=== PATIENT | male | born 1980 | race Two or more races ===

== ENCOUNTER 2021-05-15 19:05 | Observation (INO) | payer OTHER, SELFPAY ==
[2021-05-15 19:06] VITALS: BP 162/97; PULSE 78; RESP 18; TEMP 36.9; O2SAT 100; BMI 30.7
--- NOTE | 2021-05-15 19:19 | HMH.EDGENADL ---
ED Disposition Clinical Impression: Knee pain Qualifiers: Chronicity: unspecified Laterality: right Qualified Code(s): M25.561 - Pain in right knee Disposition: Still a Patient Condition on Discharge: Good Referrals: Provider,Referral, [Primary Care Provider] - - Critical Care Critical Care Time: No Attestation: On 05/15/21, the high probability of a clinically significant, sudden or life threatening deterioration of the following system(s) required my full and direct attention, intervention and personal management. The time I documented below is in addition to time spent performing reported procedures but includes the following listed in this critical care notation. Medical Decision Making - Medical Records Medical records reviewed: Yes: I reviewed the patient's medical records. - Isidro Inquiry Pt receiving controlled substance: No Vital Signs: 05/15/21 19:06 Temperature 98.5 F Temperature Source Oral Pulse Rate [Right] 78 Respiratory Rate 18 Blood Pressure [Right Arm] 162/97 H Blood Pressure Mean [Right Arm] 118 Blood Pressure Source [Right Arm] Automatic Cuff 02 Sat by Pulse Oximetry 100 Oxygen Delivery Method Room Air - Lab Data Lab Results 05/15/21 20:20: WBC 11.5 H, RBC 5.36, Hgb 15.4, Hct 44.9, MCV 83.8, MCH 28.7, MCHC 34.2, RDW 13.9, Plt Count 168, MPV 8.5, Neut % (Auto) 80.3 H, Lymph % (Auto) 12.8, [place] % (Auto) 4.1, Eos % (Auto) 1.6, Baso % (Auto) 1.1, Neut # (Auto) 9.3 H, Lymph # (Auto) 1.5, [place] # (Auto) 0.5, Eos # (Auto) 0.2, Baso # (Auto) 0.1 05/15/21 20:20: Sodium 140, Potassium 4.0, Chloride 102, Carbon Dioxide 25, Anion Gap 17.0 H, BUN 19, Creatinine 0.70, Estimated Creat Clear 198, Estimated GFR 125, Est GFR ( Amer) 151, Glucose 106 H, Calcium 9.3, C-Reactive Protein 23.5 H Result diagrams: 05/15/21 20:20 05/15/21 20:20 Orders (Tests/Meds): ED MEDICATIONS Generic Name Dose Route Start Last Admin Trade Name Freq PRN Reason Stop Dose Admin Sodium Chloride 1,000 mls @ 999 mls/hr 05/15/21 20:30 05/15/21 20:30 Sod Chlor 0.9% 1000ml Bag IV 05/15/21 21:30 999 mls/hr .Q1H1M NIDA Administration Oxycodone HCl 5 mg 05/15/21 19:24 Oxycodone 5mg Immediate Release Tablet PO 06/14/21 19:23 Q6HP PRN Severe Pain Discontinued Medications Generic Name Dose Route Start Last Admin Trade Name [place] PRN Reason Stop Dose Admin Acetaminophen 500 mg 05/15/21 19:24 Acetaminophen 500mg Tab PO 05/15/21 19:25 ONCE ONE Hydromorphone HCl 0.5 mg 05/15/21 20:46 05/15/21 20:47 Hydromorphone 2mg/Ml Syringe IV 05/15/21 20:47 0.5 mg ONCE ONE Administration Hydromorphone HCl 1 mg 05/15/21 20:49 05/15/21 20:50 Hydromorphone 2mg/Ml Syringe IV 05/15/21 20:50 1 mg ONCE ONE Administration Morphine Sulfate 4 mg 05/15/21 20:25 05/15/21 20:25 Morphine 4mg/Ml Syringe IV 05/15/21 20:26 4 mg ONCE ONE Administration Morphine Sulfate 4 mg 05/15/21 20:46 05/15/21 20:35 Morphine 4mg/Ml Syringe IV 05/15/21 20:47 4 mg ONCE ONE Administration Ondansetron HCl 4 mg 05/15/21 20:25 05/15/21 20:25 Ondansetron 4mg/2ml Vial IV 05/15/21 20:26 4 mg ONCE ONE Administration ORDERS Category Date Time Status CT knee RT wo con Stat Cat Scan 05/15/21 20:07 Ordered Complete Blood Count Auto Diff Stat Lab 05/15/21 20:20 Results Erythrocyte Sedimentation Rate Stat Lab 05/15/21 20:20 Results Procalcitonin Stat Lab 05/15/21 20:07 Ordered Prothrombin Time INR Stat Lab 05/15/21 19:23 Ordered Medical Decision Narrative: Patient was stable on arrival nontoxic appearance. Differential includes infection, cellulitis, septic joint, other. Given patient's history exam plan obtain basic labs, CRP, ESR, x-rays of the right knee and reassess. We obtained a joint aspiration of the right knee however once I was in the joint space unable to obtain any fluid. At this point I believe the patient might have a preseptal bursitis
--- NOTE | 2021-05-15 19:23 | XR_ITS ---
PROCEDURE INFORMATION: Exam: XR Right Knee Exam date and time: 05/15/2021 7:23 PM Age: 40 years old Clinical indication: Patient HX: Right knee pain since today, no known injury, limited movement TECHNIQUE: Imaging protocol: XR Right knee. Views: 3 views. COMPARISON: No relevant prior studies available. FINDINGS: Bones/joints: Small marginal osteophytes of the patellofemoral joint and medial compartment compatible with mild arthrosis. Significant prepatellar soft tissue swelling which may represent prepatellar bursitis in the appropriate clinical setting. Soft tissues: See Bones/joints finding. IMPRESSION: 1. Small marginal osteophytes of the patellofemoral joint and medial compartment compatible with mild arthrosis. 2. Significant prepatellar soft tissue swelling which may represent prepatellar bursitis in the appropriate clinical setting.
--- NOTE | 2021-05-15 20:07 | CT_ITS ---
PROCEDURE INFORMATION: Exam: CT Right Lower Extremity Without Contrast, Knee Exam date and time: 05/15/2021 8:07 PM Age: 40 years old Clinical indication: Patient HX: Right knee pain, no known injury, swelling; Additional info: Septic joint TECHNIQUE: Imaging protocol: CT of the Right lower extremity without contrast was performed. Exam focused on the knee. 3D rendering (Not supervised by radiologist): MIP and/or 3D reconstructed images were created by the technologist. Radiation optimization: All CT scans at this facility use at least one of these dose optimization techniques: automated exposure control; mA and/or kV adjustment per patient size (includes targeted exams where dose is matched to clinical indication); or iterative reconstruction. COMPARISON: CR XR KNEE RT 3V 05/15/2021 7:35 PM FINDINGS: Bones/joints: Low volume knee joint effusion with hyperattenuation of the synovium (image 39 of series 3) could represent infectious versus inflammatory synovitis. Soft tissues: Moderate prepatellar soft tissue swelling could represent prepatellar bursitis versus cellulitis. IMPRESSION: 1. Moderate prepatellar soft tissue swelling could represent prepatellar bursitis versus cellulitis. 2. Low volume knee joint effusion with hyperattenuation of the synovium (image 39 of series 3) could represent infectious versus inflammatory synovitis.
[2021-05-15 20:40] LABS: Basophils # 0.1 K/mm3 (0-0.2); Basophils % 1.1 % (0.1-2.0); Eosinophils # 0.2 K/mm3 (0.0-0.4); Eosinophils % 1.6 % (0.1-12.0); Hematocrit 44.9 % (42.0-52.0); Hemoglobin 15.4 g/dL (14.1-18.0); Lymphocytes # 1.5 K/mm3 (0.7-4.5); Lymphocytes % 12.8 % (10-50); Mean Corpuscular HGB Conc 34.2 g/dL (31.8-35.4); Mean Corpuscular Hemoglobin 28.7 pg (27.0-31.2); Mean Corpuscular Volume 83.8 fl (80-94); Mean Platelet Volume 8.5 fl (7.4-10.4); Monocytes # 0.5 K/mm3 (0.1-1.0); Monocytes % 4.1 % (1.7-9.3); Neutrophils # 9.3 K/mm3 (1.8-7.8); Neutrophils % 80.3 % (37.0-80.0); Platelet Count 168 K/mm3 (142-424); Red Blood Count 5.36 M/mm3 (4.60-6.20); Red Cell Distribution Width 13.9 % (11.5-17.5); White Blood Count 11.5 K/mm3 (4.8-10.8)
[2021-05-15 20:48] LABS: Blood Urea Nitrogen 19 mg/dl (9-20); Calcium 9.3 mg/dl (8.4-10.2); Carbon Dioxide 25 mmol/L (22.0-30.0); Chloride 102 mmol/L (98-107); Creatinine Clearance Estimated 198 mL/min (50-200); Estimated Glomerular Filt Rate 125 ml/min (>60); GFR (African American) 151 ML/MIN (>60); Glucose 106 mg/dl (74-100); Sodium 140 mmol/L (136-145)
[2021-05-15 20:53] LABS: C-Reactive Protein 23.5 mg/L (0-4)
[2021-05-15 21:05] LABS: Erythrocyte Sedimentation Rate 10 mm/hr (0-15)
[2021-05-15 21:16] LABS: Coronavirus 19, PCR Not Detected (NotDetected); Influenza A, PCR Not Detected (NotDetected); Influenza B, PCR Not Detected (NotDetected)
--- NOTE | 2021-05-15 22:31 | PC.NURSE ---
report called to jenelle.
[2021-05-15 22:32] VITALS: BP 141/78; PULSE 71; RESP 18; TEMP 36.9; O2SAT 100
[2021-05-15 22:43] LABS: Lactic Acid 1.6 mmol/L (0.7-2.1)
--- NOTE | 2021-05-15 22:54 | PC.NURSE ---
patient up to floor via wheelchair.
[2021-05-15 23:57] VITALS: BP 125/69; PULSE 79; RESP 20; TEMP 36.8; O2SAT 99
[2021-05-15 23:58] VITALS: BMI 29.2
--- NOTE | 2021-05-16 03:08 | PC.NURSE ---
shift summary pt is alert and oriented X4. lung sounds are clear with sats maintained 95% or above on room air. pts right knee is swollen but is still able to ambulate, and has full ROM. pt voids per urinal and bathroom urine is clear and yellow in color. pt denies any pain, nausea, vomiting, or diarrhea. no acute changes will continue to monitor.
[2021-05-16 04:00] VITALS: BP 128/93; PULSE 92; RESP 16; TEMP 36.9; O2SAT 99
[2021-05-16 07:24] LABS: Anion Gap 11.1 mEq/L (5-15); Blood Urea Nitrogen 16 mg/dl (9-20); Carbon Dioxide 23 mmol/L (22.0-30.0); Chloride 106 mmol/L (98-107); Creatinine Clearance Estimated 189 mL/min (50-200); Estimated Glomerular Filt Rate 125 ml/min (>60); GFR (African American) 151 ML/MIN (>60); Glucose 111 mg/dl (74-100); Potassium 4.1 mmoL/L (3.5-5.1); Sodium 136 mmol/L (136-145)
[2021-05-16 07:34] LABS: Calcium 8.3 mg/dl (8.4-10.2)
[2021-05-16 07:55] VITALS: BP 164/91; PULSE 91; RESP 17; TEMP 38.1; O2SAT 97
[2021-05-16 08:00] VITALS: PULSE 91; RESP 17; O2SAT 97
--- NOTE | 2021-05-16 08:32 | HMH.PHAVTE ---
[facility] Pharmacy VTE Monitoring - Patient Demographics Admission date: 05/16/21 Report Date: 05/16/21 Time: 08:32 Allergies/Adverse Reactions: Patient Allergies No Known Allergies Allergy (Verified 06/02/19 10:28) Height: 1.8 m Weight: 95.254 kg Patient Problems: Current Active Problems Knee pain (Acute) - VTE Risk Labs: VTE Related Lab Results Hgb 15.4 g/dL (14.1-18.0) 05/15/21 20:20 Hct 44.9 % (42.0-52.0) 05/15/21 20:20 Plt Count 168 K/mm3 (142-424) 05/15/21 20:20 BUN 16 mg/dl (9-20) 05/16/21 07:00 Creatinine 0.70 mg/dl (0.66-1.25) 05/16/21 07:00 Estimated Creat Clear 189 mL/min (50-200) 05/16/21 07:00 Was VTE Risk Assessment Performed: Yes VTE Risk Level: Very Low Risk Clinical Trial Participant: No - Prophylaxis VTE Prophylaxis Ordered?: Yes Types of VTE Prophylaxis: TEDS Knee High
--- NOTE | 2021-05-16 08:53 | HMH.PHACONS ---
- Pharmacy Consult Date: 05/16/21 Time: 08:53 Referring provider: DR. REAGAN Reason for Consult:: VANCOMYCIN DOSING Allergies and ADEs:: Allergies Allergy/AdvReac Type Severity Reaction Status Date / Time No Known Allergies Allergy Verified 06/02/19 10:28 Home Medications:: Home Medications Medication Instructions Recorded Confirmed Type No Known Home Medications 05/15/21 05/15/21 History Height: 1.8 m Weight: 95.254 kg Laboratory Results:: Laboratory Results - last 24 hr 05/15/21 20:15: SARS-CoV-2 (PCR) Not detected, Influenza A Untype (PCR) Not detected, Influenza Type B (PCR) Not detected 05/15/21 20:20: WBC 11.5 H, RBC 5.36, Hgb 15.4, Hct 44.9, MCV 83.8, MCH 28.7, MCHC 34.2, RDW 13.9, Plt Count 168, MPV 8.5, Neut % (Auto) 80.3 H, Lymph % (Auto) 12.8, [place] % (Auto) 4.1, Eos % (Auto) 1.6, Baso % (Auto) 1.1, Neut # (Auto) 9.3 H, Lymph # (Auto) 1.5, [place] # (Auto) 0.5, Eos # (Auto) 0.2, Baso # (Auto) 0.1, ESR 10 05/15/21 20:20: Sodium 140, Potassium 4.0, Chloride 102, Carbon Dioxide 25, Anion Gap 17.0 H, BUN 19, Creatinine 0.70, Estimated Creat Clear 198, Estimated GFR 125, Est GFR ( Amer) 151, Glucose 106 H, Calcium 9.3, C-Reactive Protein 23.5 H 05/15/21 20:20: Procalcitonin 0.050 05/15/21 20:20: Lactate 1.6 05/16/21 07:00: Sodium 136, Potassium 4.1, Chloride 106, Carbon Dioxide 23, Anion Gap 11.1, BUN 16, Creatinine 0.70, Estimated Creat Clear 189, Estimated GFR 125, Est GFR ( Amer) 151, Glucose 111 H, Calcium 8.3 L D Medical History: Denies:: Cancer, Diabetes Mellitus Type 1, Diabetes Mellitus Type 2, MRSA Assessment and Plan - Assessment and plan all Dx Assessment and Plan for all problems:: Subjective and Objective Data: This is a 40 year old male patient with septic knee. Measured serum creatinine (SCr) is 0.7 mg/dL. Given a height of 180 cm and a weight of 95.2 kg, estimated creatinine clearance is 188.9 mL/min (using the CrCl TBW body weight). The following targets were selected for dosing: - Desired AUC = 500 mcg*h/mL - Desired Cmax = 35 mcg/mL - Desired Cmin = 12.5 mcg/mL - Vd coefficient = 0.65 L/kg - Ke equation = CrCl*0.30094+0.0044 Calculations: Based on above, the following are calculated parameters for AUC-based vancomycin dosing in this patient: - Calculated Vd = 61.88L - Calculated Ke = 0.161 inverse hours - Calculated half-life = 4.3 hours Prescribed Dosing: Empiric dose will be vancomycin IV 1750mg [id number] Which is predicted to achieve the following parameters: - Estimated AUC = 526.4 mcg*h/mL - Estimated Cmax = 39 mcg/mL - Estimated Cmin = 14.8 mcg/mL -ROSI ELLIOTT PHARMD
[2021-05-16 09:13] LABS: Basophils # 0.1 K/mm3 (0-0.2); Basophils % 0.9 % (0.1-2.0); Eosinophils # 0.2 K/mm3 (0.0-0.4); Eosinophils % 1.5 % (0.1-12.0); Hematocrit 38.1 % (42.0-52.0); Lymphocytes # 1.4 K/mm3 (0.7-4.5); Lymphocytes % 11.4 % (10-50); Mean Corpuscular Hemoglobin 29.2 pg (27.0-31.2); Mean Corpuscular Volume 83.4 fl (80-94); Mean Platelet Volume 9.2 fl (7.4-10.4); Monocytes # 0.7 K/mm3 (0.1-1.0); Monocytes % 5.3 % (1.7-9.3); Neutrophils % 80.9 % (37.0-80.0); Platelet Count 151 K/mm3 (142-424); Red Blood Count 4.57 M/mm3 (4.60-6.20); Red Cell Distribution Width 13.8 % (11.5-17.5); White Blood Count 12.3 K/mm3 (4.8-10.8)
--- NOTE | 2021-05-16 09:19 | HMH.HP ---
*Admission Date: 05/16/21 *Chief complaint: knee pain *History of present illness: this pt presented to the ed with progressive pain and swelling rt knee with reddness and dec rom - no other swollen jts - pt was seen in the ed with abn xrays and ct showing possible cellulitis - no fluid obtained with knee aspiration -luiza is a 40-year-old otherwise healthy male presents emergency department for right knee pain. 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 Yesterday he started having some pain in his right knee that progressively got worse today. The knee is swollen and hurts when he moves it. He denies any fevers. States that the left knee also was hurting but not nearly as bad. No history of gout or immunocompromise state. No history of joint infections in the past. He denies any fevers, chills. No skin lesions. e obtained a joint aspiration of the right knee however once I was in the joint space unable to obtain any fluid. At this point I believe the patient might have a preseptal bursitis more than a septic joint given that there was no fluid in the joint space. pt admitted for ivf and abx at this time [facility] History I have reviewed the patient's past medical history: Yes Medical History: Denies:: Cancer, Diabetes Mellitus Type 1, Diabetes Mellitus Type 2, MRSA *Have you ever received a pneumonia vaccine?: No *Have you received a flu vaccine this season?: Yes Amputation: No - *Social History Last grade of school completed: None Smoking Status: Current every day smoker Alcohol Intake: current Alcohol Intake Frequency:: holidays/special occasions only *Occupational Status:: employed *Travel in the last 8 weeks: None Family Hx:: No significant family history Review of Systems - Review of Systems Review of systems:: pertinent systems reviewed and negative unless documented below - Constitutional Denies fever(s) - Eyes Denies change in vision - ENT Denies sore throat - *Cardiovascular Denies chest pain - *Respiratory Denies cough - *Gastrointestinal Denies abdominal pain - *Genitourinary Denies penile discharge - *Musculoskeletal Reports joint pain, Reports joint swelling, Reports limited joint movement - Integumentary/Breasts Denies rash - *Neurologic Denies localized weakness, Denies headache(s), Denies seizure-like activity - Psychiatric Denies anxiety Meds Home Medications Medication Instructions Recorded Confirmed Type No Known Home Medications 05/15/21 05/15/21 History Allergies Allergy/AdvReac Type Severity Reaction Status Date / Time No Known Allergies Allergy Verified 06/02/19 10:28 Exam Vital signs and Labs for Last 24 Hours: Temp Pulse Resp BP Pulse Ox 100.6 F H 91 H 17 164/91 H 97 05/16/21 07:55 05/16/21 07:55 05/16/21 07:55 05/16/21 07:55 05/16/21 07:55 Laboratory Results - last 24 hr 05/15/21 20:15: SARS-CoV-2 (PCR) Not detected, Influenza A Untype (PCR) Not detected, Influenza Type B (PCR) Not detected 05/15/21 20:20: WBC 11.5 H, RBC 5.36, Hgb 15.4, Hct 44.9, MCV 83.8, MCH 28.7, MCHC 34.2, RDW 13.9, Plt Count 168, MPV 8.5, Neut % (Auto) 80.3 H, Lymph % (Auto) 12.8, [place] % (Auto) 4.1, Eos % (Auto) 1.6, Baso % (Auto) 1.1, Neut # (Auto) 9.3 H, Lymph # (Auto) 1.5, [place] # (Auto) 0.5, Eos # (Auto) 0.2, Baso # (Auto) 0.1, ESR 10 05/15/21 20:20: Sodium 140, Potassium 4.0, Chloride 102, Carbon Dioxide 25, Anion Gap 17.0 H, BUN 19, Creatinine 0.70, Estimated Creat Clear 198, Estimated GFR 125, Est GFR ( Amer) 151, Glucose 106 H, Calcium 9.3, C-Reactive Protein 23.5 H 05/15/21 20:20: Procalcitonin 0.050 05/15/21 20:20: Lactate 1.6 05/16/21 07:00: Sodium 136, Potassium 4.1, Chloride 106, Carbon Dioxide 23, Anion Gap 11.1, BUN 16, Creatinine 0.70, Estimated Creat Clear 189, Estimated GFR 125, Est GFR ( Amer) 151, Glucose 111 H, Calcium 8.3 L D 05/16/21 08:48: WBC 12.3 H, RBC 4.57 L, Hct 38.1 L, MCV 83.4
[2021-05-16 09:49] LABS: Hemoglobin 13.3 g/dL (14.1-18.0)
--- NOTE | 2021-05-16 15:02 | HMH.ORTHOCON ---
*Admission Date: 05/16/21 *Reason for consult:: Prepatellar bursitis, right knee *History of present illness: Patient is a 40-year-old male admitted to the hospital overnight with complaints of pain and swelling of his right knee. He is giving a one day history of pain and swelling over the anterior aspect of his right knee. He also reports some erythema over this area. No history of any specific injury. 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 He says he had similar but milder problem on the left side which has improved on its own. He says he did not have any fevers, chills or rigors prior to he was admitted. However, he had temperature of around 100 this morning. He says he is feeling well within himself and is eating and drinking well. No history of any previous similar problems with the right knee. No history of any previous knee surgery or significant injury. Couple of attempts were made in the ER to aspirate the knee which were only dry taps. CT scan showed prepatellar swelling with a small amount of knee effusion. Following admission last night, he was started on IV antibiotics and narcotic pain medication. He reports improvement in his pain today. He still reports pain with knee movements. He is otherwise healthy and has no significant medical problems. No history of gout or immunocompromise state. No history of any distal tingling or numbness. [facility] History I have reviewed the patient's past medical history: Yes Medical History: Denies:: Cancer, Diabetes Mellitus Type 1, Diabetes Mellitus Type 2, MRSA *Have you ever received a pneumonia vaccine?: No *Have you received a flu vaccine this season?: Yes Amputation: No - *Social History Last grade of school completed: None Smoking Status: Never smoker Alcohol Intake: current Alcohol Intake Frequency:: holidays/special occasions only *Occupational Status:: employed *Travel in the last 8 weeks: None Family Hx:: Non-contributory Review of Systems - Review of Systems Review of systems:: pertinent systems reviewed and negative unless documented below - Constitutional Denies chills, Denies excessive sweating, Denies fever(s), Denies malaise - Eyes Denies change in vision - ENT Denies abnormal hearing - *Cardiovascular Denies chest pain, Denies shortness of breath - *Respiratory Denies chest congestion, Denies cough - *Gastrointestinal Denies abdominal pain, Denies change in bowel habits - *Genitourinary Denies difficulty urinating - *Musculoskeletal Reports abnormal walking, Reports joint pain, Reports joint swelling, Reports limited joint movement - *Neurologic Denies localized weakness, Denies headache(s), Denies seizure-like activity - Endocrine Denies cold intolerance, Denies heat intolerance - Hematologic/Lymphatic Denies easy bleeding, Denies easy bruising Meds Home Medications Medication Instructions Recorded Confirmed Type No Known Home Medications 05/15/21 05/15/21 History Allergies Allergy/AdvReac Type Severity Reaction Status Date / Time No Known Allergies Allergy Verified 06/02/19 10:28 Exam Vital signs and Labs for Last 24 Hours: Temp Pulse Resp BP Pulse Ox 100.6 F H 91 H 17 164/91 H 97 05/16/21 07:55 05/16/21 08:00 05/16/21 08:00 05/16/21 07:55 05/16/21 08:00 Laboratory Results - last 24 hr 05/15/21 20:15: SARS-CoV-2 (PCR) Not detected, Influenza A Untype (PCR) Not detected, Influenza Type B (PCR) Not detected 05/15/21 20:20: WBC 11.5 H, RBC 5.36, Hgb 15.4, Hct 44.9, MCV 83.8, MCH 28.7, MCHC 34.2, RDW 13.9, Plt Count 168, MPV 8.5, Neut % (Auto) 80.3 H, Lymph % (Auto) 12.8, [place] % (Auto) 4.1, Eos % (Auto) 1.6, Baso % (Auto) 1.1, Neut # (Auto) 9.3 H, Lymph # (Auto) 1.5, [place] # (Auto) 0.5, Eos # (Auto) 0.2, Baso # (Auto) 0.1, ESR 10 05/15/21 20:20: Sodium 140, Potassium 4.0, Chloride 102, Carbon Dioxide 25, Anion Gap 17.
[2021-05-16 16:00] VITALS: BP 134/87; PULSE 83; RESP 16; TEMP 36.9; O2SAT 100
--- NOTE | 2021-05-16 16:21 | PC.NURSE ---
Pt has been pleasant and cooperative this shift. A&O X4. Pt has had several complaints of pain and has been medicated with Dilaudid per MAR with favorable results. Pt is on room air with sats. >90%. Lungs CTA. RT knee noted to be edematous and warm to the touch. Appetite is good and pt eats the majority of all meals. Pt ambulates independently to/from the bathroom and throughout the room. Urine is clear and yellow. No BM this shift. Temperature this AM noted to be 100.6. After Tylenol administration temp. has remained WNL. 18 G peripheral IV in the RT AC is patent and infusing NS @ 100 ML/HR. VSS. Call light within reach. Will continue to monitor.
[2021-05-16 20:00] VITALS: BP 139/70; PULSE 77; RESP 17; TEMP 36.8; O2SAT 99
[2021-05-17 04:00] VITALS: BP 109/55; PULSE 74; RESP 18; TEMP 37.3; O2SAT 100
--- NOTE | 2021-05-17 04:30 | PC.NURSE ---
shift summary pt is alert and oriented X4. lung sounds are clear with sats maintained 95% or above on room air. pts right knee is swollen but is still able to ambulate, and has full ROM. pt voids per urinal and bathroom urine is clear and yellow in color.pt complained of pain one time that was relieved with pain meds. pt denies nausea, vomiting, or diarrhea. no acute changes will continue to monitor.
[2021-05-17 06:08] VITALS: BMI 29.4
[2021-05-17 07:35] LABS: Basophils % 0.3 % (0.1-2.0); Eosinophils # 0.1 K/mm3 (0.0-0.4); Hematocrit 38.6 % (42.0-52.0); Hemoglobin 13.2 g/dL (14.1-18.0); Lymphocytes # 1.4 K/mm3 (0.7-4.5); Lymphocytes % 11.7 % (10-50); Mean Corpuscular HGB Conc 34.1 g/dL (31.8-35.4); Mean Corpuscular Hemoglobin 29.1 pg (27.0-31.2); Mean Corpuscular Volume 85.4 fl (80-94); Mean Platelet Volume 9.1 fl (7.4-10.4); Monocytes # 0.6 K/mm3 (0.1-1.0); Monocytes % 4.8 % (1.7-9.3); Neutrophils # 9.4 K/mm3 (1.8-7.8); Neutrophils % 82.1 % (37.0-80.0); Platelet Count 147 K/mm3 (142-424); Red Blood Count 4.52 M/mm3 (4.60-6.20); Red Cell Distribution Width 13.8 % (11.5-17.5); White Blood Count 11.4 K/mm3 (4.8-10.8)
[2021-05-17 07:43] LABS: C-Reactive Protein 229.3 mg/L (0-4)
[2021-05-17 08:00] VITALS: BP 140/80; PULSE 87; RESP 16; TEMP 37.9; O2SAT 98
[2021-05-17 08:01] LABS: Erythrocyte Sedimentation Rate 69 mm/hr (0-15)
--- NOTE | 2021-05-17 09:27 | HMH.ACPN2 ---
Internal Medicine - PN: Subj *Date: 05/18/21 *Time: 07:27 Interval history: pt doing better this am -knee appears better Exam Vital signs and Labs for Last 24 Hours: Temp Pulse Resp BP Pulse Ox 100.2 F H 87 16 140/80 98 05/17/21 08:00 05/17/21 08:00 05/17/21 08:00 05/17/21 08:00 05/17/21 08:00 Laboratory Results - last 24 hr 05/16/21 08:48: Hgb 13.3 L D 05/17/21 07:09: WBC 11.4 H, RBC 4.52 L, Hgb 13.2 L, Hct 38.6 L, MCV 85.4, MCH 29.1, MCHC 34.1, RDW 13.8, Plt Count 147, MPV 9.1, Neut % (Auto) 82.1 H, Lymph % (Auto) 11.7, [place] % (Auto) 4.8, Eos % (Auto) 1.0, Baso % (Auto) 0.3, Neut # (Auto) 9.4 H, Lymph # (Auto) 1.4, [place] # (Auto) 0.6, Eos # (Auto) 0.1, Baso # (Auto) 0.0, ESR 69 H 05/17/21 07:09: C-Reactive Protein 229.3 H 05/17/21 07:09: Vancomycin Peak 10.0 L I & O for Last 24 hours: Intake & Output 05/14/21 05/15/21 05/16/21 05/17/21 11:59 11:59 11:59 11:59 Intake Total 1250 / 1250 2220 / 2220 Balance 1250 / 1250 2220 / 2220 Weight 210 lb 210 lb - Constitutional no acute distress - *Routine HEENT Exam Head: Present: normocephalic Eye: Present: EOMI, PERRL ENT: Present: mucous membranes dry - *Routine Neck Exam Present: supple - *Routine Respiratory Exam Present: CTA bilaterally - *Routine Cardiovascular Exam Present: RRR - *Routine Abdominal Exam Present: soft - *Routine Extremities Exam Comments: rt knee better with less changes - *Routine Skin Exam Present: warm - *Routine Neurological Exam Present: alert, CN II-XII intact - Routine Psychiatric Exam Present: normal affect Assessment and Plan (1) Cellulitis Status: Acute Qualifiers: Site of cellulitis: extremity Site of cellulitis of extremity: lower extremity Laterality: right Qualified Code(s): L03.115 - Cellulitis of right lower limb Category: Medical Code(s): L03.90 - Cellulitis, unspecified (2) Prepatellar bursitis, right knee Status: Acute Category: Medical Code(s): M70.41 - Prepatellar bursitis, right knee (3) Overweight (BMI 25.0-29.9) Status: Acute Category: Medical Code(s): E66.3 - Overweight
--- NOTE | 2021-05-17 09:38 | P.PN_ITS ---
Subjective Date: 05/17/21 Time: 09:15 Principal diagnosis: Prepatellar bursitis, right knee Interval history: Patient says he is feeling better and his knee feels 'a lot better' than yesterday. He says he is mobilizing well and only reports slight anterior knee pain when he takes first 1 or 2 steps. No pain at rest. He also reports good range of knee movements today. He had a temperature spike this morning but says he is feeling well within himself without any chills or rigors. He says he is feeling well within himself. He is eating and drinking well. No history of any nausea or vomiting. No history of any distal tingling or numbness. PN: Obj Ex Vital signs: Temp Pulse Resp BP Pulse Ox 100.2 F H 87 16 140/80 98 05/17/21 08:00 05/17/21 08:00 05/17/21 08:00 05/17/21 08:00 05/17/21 08:00 Narrative: Laboratory Results - last 24 hr 05/17/21 07:09: WBC 11.4 H, RBC 4.52 L, Hgb 13.2 L, Hct 38.6 L, MCV 85.4, MCH 29.1, MCHC 34.1, RDW 13.8, Plt Count 147, MPV 9.1, Neut % (Auto) 82.1 H, Lymph % (Auto) 11.7, [place] % (Auto) 4.8, Eos % (Auto) 1.0, Baso % (Auto) 0.3, Neut # (Auto) 9.4 H, Lymph # (Auto) 1.4, [place] # (Auto) 0.6, Eos # (Auto) 0.1, Baso # (Auto) 0.0, ESR 69 H 05/17/21 07:09: C-Reactive Protein 229.3 H 05/17/21 07:09: Vancomycin Peak 10.0 L Exam General appearance: alert, active, awake, no acute distress Cardiovascular: regular rate & rhythm, normal peripheral pulses Respiratory: No respiratory distress noted, speaks in full sentences ABD: soft and non tender Neuro: alert, awake, oriented x 3 Psych: normal mood and affect On examination of the right knee, there is diffuse swelling, erythema and tenderness over the prepatellar area. The swelling appears to be somewhat less compared to yesterday. Nontender over the medial and lateral joint lines as well as posterior knee. Increased warmth noted over the anterior aspect. He is able to actively straight leg raise. Knee range of movements are 5-100 degrees of flexion. Thigh and calf are soft and nontender. Distal pulses are 2+. Distal sensation is intact to light touch throughout. No motor deficits noted distally. Progress Note: A&P (1) Cellulitis Status: Acute (2) Prepatellar bursitis, right knee Status: Acute Assessment and Plan for All Diagnoses:: I have reviewed the clinical findings and progress with the patient. Patient is doing well and reports significant improvement with his knee. The white cell count has started trending down; however, the ESR and CRP went up today. Recommend continuation of IV antibiotics and other conservative measures. Recommend patient stays in hospital for at least another 24 hours and if he continues to improve then possibly he could be discharged home with oral antibiotics tomorrow. Continue medical management as per Dr. Argueta.
[2021-05-17 10:05] LABS: Vancomycin,Trough 7.6 ug/mL (5.0-10.0)
[2021-05-17 13:42] LABS: Vancomycin,Peak 30.2 ug/ml (11-39)
[2021-05-17 16:00] VITALS: BP 137/75; PULSE 89; RESP 16; TEMP 37.2; O2SAT 95
--- NOTE | 2021-05-17 17:14 | PC.NURSE ---
Pt has been pleasant and cooperative this shift. A&O X4. No complaints of pain. Pt is on room air with sats. >90%. Lungs CTA. RT knee noted to be edematous and warm to the touch. Ice pack in place. Appetite is good and pt eats the majority of all meals. Pt ambulates independently to/from the bathroom and throughout the room. Urine is clear and yellow. No BM this shift. 18 G peripheral IV in the RT AC is patent and infusing NS @ 100 ML/HR. VSS. Call light within reach. Will continue to monitor.
[2021-05-17 19:40] VITALS: BP 121/55; PULSE 67; RESP 18; TEMP 36.9; O2SAT 98
--- NOTE | 2021-05-18 02:56 | PC.NURSE ---
shift summary pt is alert and oriented X4. lung sounds are clear with sats maintained 95% or above on room air. pts right knee is swollen but is still able to ambulate, and has full ROM. swelling in pts knee has decreased from previous shift. pt voids per urinal and bathroom urine is clear and yellow in color.pt had no complaints. pt denies nausea, vomiting, or diarrhea. no acute changes will continue to monitor.
[2021-05-18 04:00] VITALS: BP 101/66; PULSE 84; RESP 18; TEMP 37.9; O2SAT 98
[2021-05-18 05:14] VITALS: BMI 29.5
[2021-05-18 07:41] VITALS: BP 142/86; PULSE 83; RESP 18; TEMP 36.9; O2SAT 97
[2021-05-18 08:13] LABS: Basophils # 0.1 K/mm3 (0-0.2); Basophils % 0.5 % (0.1-2.0); Eosinophils # 0.2 K/mm3 (0.0-0.4); Eosinophils % 1.4 % (0.1-12.0); Hematocrit 40.4 % (42.0-52.0); Hemoglobin 13.5 g/dL (14.1-18.0); Lymphocytes # 1.6 K/mm3 (0.7-4.5); Lymphocytes % 14.8 % (10-50); Mean Corpuscular HGB Conc 33.5 g/dL (31.8-35.4); Mean Corpuscular Hemoglobin 28.4 pg (27.0-31.2); Mean Corpuscular Volume 84.9 fl (80-94); Monocytes # 0.4 K/mm3 (0.1-1.0); Monocytes % 3.6 % (1.7-9.3); Neutrophils # 8.6 K/mm3 (1.8-7.8); Neutrophils % 79.6 % (37.0-80.0); Platelet Count 189 K/mm3 (142-424); Red Blood Count 4.76 M/mm3 (4.60-6.20); Red Cell Distribution Width 13.7 % (11.5-17.5); White Blood Count 10.8 K/mm3 (4.8-10.8)
[2021-05-18 08:37] LABS: C-Reactive Protein 187.8 mg/L (0-4)
--- NOTE | 2021-05-18 10:05 | HMH.DCSUM ---
General - General Admission date:: 05/15/21 Discharge date: 05/18/21 HPI HPI: this pt presented to the ed with progressive pain and swelling rt knee with reddness and dec rom - no other swollen jts - pt was seen in the ed with abn xrays and ct showing possible cellulitis - no fluid obtained with knee aspiration -luiza is a 40-year-old otherwise healthy male presents emergency department for right knee pain. 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 Yesterday he started having some pain in his right knee that progressively got worse today. The knee is swollen and hurts when he moves it. He denies any fevers. States that the left knee also was hurting but not nearly as bad. No history of gout or immunocompromise state. No history of joint infections in the past. He denies any fevers, chills. No skin lesions. e obtained a joint aspiration of the right knee however once I was in the joint space unable to obtain any fluid. At this point I believe the patient might have a preseptal bursitis more than a septic joint given that there was no fluid in the joint space. pt admitted for ivf and abx at this time Hospital Course Hospital Course: Laboratory Tests 05/15/21 05/15/21 05/15/21 20:15 20:20 20:20 WBC 11.5 H RBC 5.36 Hgb 15.4 Hct 44.9 MCV 83.8 MCH 28.7 MCHC 34.2 RDW 13.9 Plt Count 168 MPV 8.5 Neut % (Auto) 80.3 H Lymph % (Auto) 12.8 [place] % (Auto) 4.1 Eos % (Auto) 1.6 Baso % (Auto) 1.1 Neut # (Auto) 9.3 H Lymph # (Auto) 1.5 [place] # (Auto) 0.5 Eos # (Auto) 0.2 Baso # (Auto) 0.1 ESR 10 Sodium 140 Potassium 4.0 Chloride 102 Carbon Dioxide 25 Anion Gap 17.0 H BUN 19 Creatinine 0.70 Estimated Creat Clear 198 Estimated GFR 125 Est GFR ( Amer) 151 Glucose 106 H Lactate Calcium 9.3 C-Reactive Protein 23.5 H Procalcitonin Vancomycin Peak Vancomycin Trough SARS-CoV-2 (PCR) Not detected Influenza A Untype (PCR) Not detected Influenza Type B (PCR) Not detected 05/15/21 05/15/21 05/16/21 20:20 20:20 07:00 WBC RBC Hgb Hct MCV MCH MCHC RDW Plt Count MPV Neut % (Auto) Lymph % (Auto) [place] % (Auto) Eos % (Auto) Baso % (Auto) Neut # (Auto) Lymph # (Auto) [place] # (Auto) Eos # (Auto) Baso # (Auto) ESR Sodium 136 Potassium 4.1 Chloride 106 Carbon Dioxide 23 Anion Gap 11.1 BUN 16 Creatinine 0.70 Estimated Creat Clear 189 Estimated GFR 125 Est GFR ( Amer) 151 Glucose 111 H Lactate 1.6 Calcium 8.3 L D C-Reactive Protein Procalcitonin 0.050 Vancomycin Peak Vancomycin Trough SARS-CoV-2 (PCR) Influenza A Untype (PCR) Influenza Type B (PCR) 05/16/21 05/17/21 05/17/21 08:48 07:09 07:09 WBC 12.3 H 11.4 H RBC 4.57 L 4.52 L Hgb 13.3 L D 13.2 L Hct 38.1 L 38.6 L MCV 83.4 85.4 MCH 29.2 29.1 MCHC 35.0 34.1 RDW 13.8 13.8 Plt Count 151 147 MPV 9.2 9.1 Neut % (Auto) 80.9 H 82.1 H Lymph % (Auto) 11.4 11.7 [place] % (Auto) 5.3 4.8 Eos % (Auto) 1.5 1.0 Baso % (Auto) 0.9 0.3 Neut # (Auto) 10.0 H 9.4 H Lymph # (Auto) 1.4 1.4 [place] # (Auto) 0.7 0.6 Eos # (Auto) 0.2 0.1 Baso # (Auto) 0.1 0.0 ESR 69 H Sodium Potassium Chloride Carbon Dioxide Anion Gap BUN Creatinine Estimated Creat Clear Estimated GFR Est GFR ( Amer) Glucose Lactate Calcium C-Reactive Protein 229.3 H Procalcitonin Vancomycin Peak Vancomycin Trough SARS-CoV-2 (PCR) Influenza A Untype (PCR) Influenza Type B (PCR) 05/17/21 05/17/21 05/17/21 07:09 09:32 13:10 WBC RBC Hgb Hct MCV MCH MCHC RDW Plt Count MPV Neut % (Auto) Lymph % (Auto) [place]
== END 2021-05-18 13:15 | disposition home or self-care (01) ==
LOC: ER 21:05 → 2ND 21:17
PROVIDERS: Orthopaedic Surgery; Admitting Provider Emergency Medicine; Emergency Provider Emergency Medicine; Visit Provider Emergency Medicine
DX: L03.115 Cellulitis of right lower limb (principal); M70.41 Prepatellar bursitis, right knee; M25.561 Pain in right knee; Z20.822 Contact with and (suspected) exposure to COVID-19
CPT/HCPCS: 20610; 36415; 73562; 73700; 80048; 80202; 83605; 84145; 85025; 85651; 86140; 87040; 96365; 96366; 96375; 96376; 99284; 99291; G0378; J2405; J3370; U0003

== ENCOUNTER 2021-06-12 09:01 | Emergency (ER) | payer OTHER, SELFPAY ==
[2021-06-12 09:01] VITALS: BP 144/101; PULSE 101; RESP 20; TEMP 37.7; O2SAT 96; BMI 29.1
--- NOTE | 2021-06-12 09:24 | HMH.EDUTC ---
[facility] [place] Disposition Clinical Impression: Strep throat Disposition: Home, Self-Care Condition on Discharge: Good Instructions: Strep Throat, DI for Strep Throat, Amoxicillin Additional Instructions: *Monitor Temp, Over the counter Motrin or Tylenol as directed/as needed Tylenol every 4 hours and Motrin every 6 hours (as long as your family doctor has told you that you can take it) for fever or pain. and straight to ER if unable to lower temp less than 101.0 after medication given *Warm salt water gargles may help to soothe the throat *Throat Lozenges *Warm fluids like tea with honey may help to soothe the throat *Sleep elevated *Humidifier/Vaporizer Follow up IMMEDIATELY for new or worsening symptoms or no Noticeable improvement over the next 48-72 hours. 911 for difficulty breathing or swallowing You were tested for today for COVID19 your test result should be back in the next 24-48 hours, you may call to the [facility] to see if your test results are back in the next 48 hours [phone] [facility] hours are 9am-9pm You was given a handout with instructions for Self Quarantine and Self isolation for while you wait on test results and what to do if they are positive If you are positive the Health Dept will be contacting you also Prescriptions: Amoxicillin [Amoxicillin 500mg Cap] 500 mg PO TID #30 cap Transmission Status: Received by [id number] Benzonatate [Tessalon Perle 100mg Cap*] 100 mg PO TID PRN #15 cap PRN Reason: Cough Transmission [facility]: [id number] Referrals: Sina Argueta MD [Primary Care Provider] - As needed Time of Disposition: 09:28 Medical Decision Making - Isidro Inquiry Pt receiving controlled substance: No Isidro was queried for this patient: No Vital Signs: 06/12/21 09:01 06/12/21 09:31 Temperature 99.9 F H 99.9 F H Temperature Source Oral Pulse Rate 101 H Pulse Rate [Left Brachial] 101 H Respiratory Rate 20 20 Blood Pressure 144/101 H Blood Pressure [Left Arm] 144/101 H Blood Pressure Mean [Left Arm] 115 Blood Pressure Source [Left Arm] Automatic Cuff Blood Pressure Position [Left Arm] Sitting 02 Sat by Pulse Oximetry 96 Oxygen Delivery Method Room Air - Lab Data Lab results reviewed: Yes: I reviewed the patient's lab results. Lab Results 06/12/21 09:23: Strep Scn Rapid Clinic Positive A Orders (Tests/Meds): ORDERS Category Date Time Status Covid-19 Nasal PCR ([facility]) Routine Lab 06/12/21 09:25 Ordered [facility] [place] HPI - General Stated complaint: fever, body aches Time Seen by Provider: 06/12/21 09:24 Mode of Arrival: Ambulatory Source of Information: Patient Limitations: No Limitations Description of Symptoms (Recalled from Triage Doc. by RN): PATIENT C/O FEVER, SORE THROAT, CHILLS AND COUGH X 2 DAYS HEENT Symptoms (Recalled from RN notes): Yes Resp Symptoms (Recalled from RN notes): Yes Skin Symptoms (Recalled from RN notes): No MS Symptoms (Recalled from RN notes): No Functional Status (Recalled from RN notes): wnl - History of Present Illness Provider Complaint: Patient states that he has been having sore throat, cough, body aches and fever for 2 days State that it hurts when he swallows and he feels like he is clearing his throat alot State that today he was still feeling bad so he came in to get checked and tested for COVID - Related Data Previous Rx's Medication Instructions Recorded Amoxicillin [Amoxicillin 500mg 500 mg PO TID #30 cap 06/12/21 Cap] Benzonatate [Tessalon Perle 100mg 100 mg PO TID PRN #15 cap 06/12/21 Cap*] Allergies Allergy/AdvReac Type Severity Reaction Status Date / Time No Known Allergies Allergy Verified 05/21/21 10:19 - Worker's Comp Is this a Worker's Comp case?: No [facility] History - Hepatitis A Screen Drug use history?: No High risk sexual behaviors?: No History of sexually transmitted infection?: No Currently employed?: No Childcare worker?: No Do you have indo
[2021-06-12 09:31] VITALS: BP 144/101; PULSE 101; RESP 20; TEMP 37.7; O2SAT 96
[2021-06-12 09:32] LABS: UTC Strep Screen (Rapid) Positive (Negative)
--- NOTE | 2021-06-12 13:53 | PC.NURSE ---
ATTEMPTED TO CALL PATIENT. SPOKE WITH HIS AND LEFT A MESSAGE WITH HER TO HAVE HIM CALL BACK.
== END 2021-06-12 09:39 | disposition home or self-care (01) ==
PROVIDERS: Emergency Provider Nurse Practitioner; PCP Emergency Medicine
DX: J02.0 Streptococcal pharyngitis (principal)
CPT/HCPCS: 87880; 99203; G0463; U0003

== ENCOUNTER 2022-07-28 22:58 | Emergency (ER) | payer OTHER, SELFPAY ==
[2022-07-28 22:59] VITALS: BP 186/109; PULSE 102; RESP 16; TEMP 36.6; O2SAT 96; BMI 31.7
[2022-07-28 23:24] VITALS: BP 158/104; BP 160/90; BP 160/98; PULSE 88; PULSE 90; PULSE 93
[2022-07-28 23:26] LABS: Coronavirus 19, PCR Not Detected (NotDetected); Influenza A, PCR Not Detected (NotDetected); Influenza B, PCR Not Detected (NotDetected)
[2022-07-28 23:46] LABS: Alanine Aminotransferase 82 U/L (12-78); Albumin Level 4.9 g/dl (3.5-5.0); Albumin/Globulin Ratio 1.3 (1.1-1.8); Alkaline Phosphatase 132 U/L (38-126); Anion Gap 18.5 mEq/L (5-15); Aspartate Amino Transferase 63 U/L (17-59); Bilirubin,Total 0.5 mg/dl (0.2-1.3); Blood Urea Nitrogen 17 mg/dl (9-20); Calcium 9.1 mg/dl (8.4-10.2); Carbon Dioxide 24 mmol/L (22.0-30.0); Chloride 101 mmol/L (98-107); Creatinine Clearance Estimated 192 mL/min (50-200); Estimated Glomerular Filt Rate 124 ml/min (>60); GFR (African American) 150 ML/MIN (>60); Globulin 3.8 g/dL (1.3-3.2); Glucose 132 mg/dl (74-100); Potassium 3.5 mmoL/L (3.5-5.1); Sodium 140 mmol/L (136-145); Total Protein,Serum 8.7 g/dl (6.3-8.2)
[2022-07-28 23:55] LABS: Basophils # 0.1 K/mm3 (0-0.2); Basophils % 1.5 % (0.1-2.0); Eosinophils # 0.1 K/mm3 (0.0-0.4); Eosinophils % 1.3 % (0.1-12.0); Hematocrit 46.9 % (42.0-52.0); Hemoglobin 15.3 g/dL (14.1-18.0); Lymphocytes # 2.6 K/mm3 (0.7-4.5); Lymphocytes % 34.5 % (10-50); Mean Corpuscular HGB Conc 32.7 g/dL (31.8-35.4); Mean Corpuscular Volume 88.6 fl (80-94); Mean Platelet Volume 9.5 fl (7.4-10.4); Monocytes # 0.4 K/mm3 (0.1-1.0); Monocytes % 4.8 % (1.7-9.3); Neutrophils # 4.4 K/mm3 (1.8-7.8); Neutrophils % 57.9 % (37.0-80.0); Platelet Count 202 K/mm3 (142-424); Red Cell Distribution Width 13.6 % (11.5-17.5); White Blood Count 7.6 K/mm3 (4.8-10.8)
[2022-07-29] VITALS: BP 127/83; PULSE 75; RESP 16; O2SAT 98
[2022-07-29 00:31] VITALS: BP 139/64; PULSE 96; RESP 18; O2SAT 99
--- NOTE | 2022-07-29 00:33 | PC.NURSE ---
COVID SWAB COLLECTED. PT DENIES PAIN. PT UPDATED WITH EXPECTED WAIT TIMES. NO ACUTE DISTRESS NOTED.
--- NOTE | 2022-07-29 00:42 | HMH.EDDIZZ ---
Discharge Plan Disposition Patient Disposition: Home, Self-Care Prescriptions Prescriptions: New meclizine [Antivert] 25 mg tablet,chewable 25 mg PO TID Qty: 10 0RF Referrals Follow up/Referrals: Sina Argueta MD [Primary Care Provider] - See instructions Clinical Impressions Clinical Impression: Vertigo, Benign paroxysmal positional vertigo Instructions Patient Instructions: Vertigo Discharge ED Provider: Sina Argueta Dizzy HPI General Chief Complaint: Dizziness Stated Complaint: vomiting, aches Time Seen by Provider: 07/29/22 00:42 Mode of Arrival: Ambulatory Source of Information: Patient and Medical Record Limitations: No Limitations Description of Symptoms (Recalled from ER Triage Doc. 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 Medical History (Updated 07/29/22 @ 03:05 by Sina Argueta MD) No active medical problems Social History Smoking Status: Never smoker alcohol intake: current current occupational status: employed Travel in the last 8 weeks: None ROS Obtained: Yes All systems reviewed & no additional complaints except as documented Physical Exam General General appearance: alert and in no apparent distress Head Head exam: normocephalic Eye Eye exam: Present PERRL, EOMI and nystagmus (with lt lat and upper only ) ENT ENT exam: Present mucous membranes moist and TM's normal bilaterally Neck Neck exam: Present trachea midline Respiratory Respiratory exam: Present normal lung sounds bilaterally; Absent respiratory distress Cardiovascular Cardiovascular exam: Present regular rate and systolic murmur Abdominal Exam Abdominal exam: Present soft Extremities Exam Extremities exam: Present full ROM Neurological Exam Neurological exam: Present alert, oriented X3 and CN II-XII intact Psychiatric Psychiatric exam: Present normal affect Skin Skin exam: Absent rash Medical Decision Making Medical Records Medical records reviewed: Yes I reviewed the patient's medical records. Isidro Inquiry Pt receiving controlled substance: No Vital Signs: 07/28/22 22:59 07/28/22 23:24 07/29/22 00:00 Temperature 97.9 F Temperature Source Oral Pulse Rate 75 Pulse Rate [Orthostatic Lying] 88 Pulse Rate [Orthostatic Sitting] 90 Pulse Rate [Orthostatic Standing] 93 H Pulse Rate [Right] 102 H Respiratory Rate 16 16 Blood Pressure 127/83 Blood Pressure [Orthostatic Lying] 160/90 H Blood Pressure [Orthostatic Sitting] 160/98 H Blood Pressure [Orthostatic Standing] 158/104 H Blood Pressure [Right Arm] 186/109 H Blood Pressure Mean 97 Blood Pressure Mean [Right Arm] 134 02 Sat by Pulse Oximetry 96 98 Oxygen Delivery Method 07/29/22 00:31 07/29/22 01:00 07/29/22 02:00 Temperature Temperature Source Pulse Rate 96 H 69 68 Pulse Rate [Orthostatic Lying] Pulse Rate [Orthostatic Sitting] Pulse Rate [Orthostatic Standing] Pulse Rate [Right] Respiratory Rate 18 Blood Pressure 139/64 125/73 153/93 H Blood Pressure [Orthostatic Lying] Blood Pressure [Orthostatic Sitting] Blood Pressure [Orthostatic Standing] Blood Pressure [Right Arm] Blood Pressure Mean 89 87
--- NOTE | 2022-07-29 00:50 | CT_ITS ---
PROCEDURE INFORMATION: Exam: CTA Head With Contrast, Arteriography Exam date and time: 07/29/2022 1:07 AM Age: 41 years old Clinical indication: Dizziness and giddiness; Additional info: Dizziness. Patient states dizziness and nausea TECHNIQUE: Imaging protocol: Computed tomographic angiography of the head with contrast. Exam focused on the arteries. 3D rendering (Not supervised by radiologist): MIP and/or 3D reconstructed images were created by the technologist. Radiation optimization: All CT scans at this facility use at least one of these dose optimization techniques: automated exposure control; mA and/or kV adjustment per patient size (includes targeted exams where dose is matched to clinical indication); or iterative reconstruction. Contrast material: ISOVUE; Contrast volume: 100 ml; Contrast route: INTRAVENOUS (IV); COMPARISON: CT HEAD/BRAIN WO CON 07/29/2022 1:03 AM FINDINGS: ANTERIOR CIRCULATION: Right internal carotid artery: Intracranial segment is patent with no significant stenosis. No aneurysm. Right middle cerebral artery: No occlusion or significant stenosis. No aneurysm. Right anterior cerebral artery: No occlusion or significant stenosis. No aneurysm. Left internal carotid artery: Intracranial segment is patent with no significant stenosis. No aneurysm. Left middle cerebral artery: No occlusion or significant stenosis. No aneurysm. Left anterior cerebral artery: No occlusion or significant stenosis. No aneurysm. POSTERIOR CIRCULATION: Right vertebral artery: No occlusion or significant stenosis. No aneurysm. Left vertebral artery: No occlusion or significant stenosis. No aneurysm. Basilar artery: No occlusion or significant stenosis. No aneurysm. Right posterior cerebral artery: No occlusion or significant stenosis. No aneurysm. Left posterior cerebral artery: No occlusion or significant stenosis. No aneurysm. Brain: No definite mass, mass effect, or midline shift. Cerebral ventricles: No ventriculomegaly. Bones/joints: Unremarkable. No acute fracture. Soft tissues: Unremarkable. IMPRESSION: No large vessel stenosis or occlusion.
--- NOTE | 2022-07-29 00:50 | CT_ITS ---
PROCEDURE INFORMATION: Exam: CTA Neck With Contrast Exam date and time: 07/29/2022 1:07 AM Age: 41 years old Clinical indication: Dizziness and giddiness TECHNIQUE: Imaging protocol: Computed tomographic angiography of the neck with contrast. 3D rendering (Not supervised by radiologist): MIP and/or 3D reconstructed images were created by the technologist. Radiation optimization: All CT scans at this facility use at least one of these dose optimization techniques: automated exposure control; mA and/or kV adjustment per patient size (includes targeted exams where dose is matched to clinical indication); or iterative reconstruction. Contrast material: [place]OVUE; Contrast volume: 100 ml; Contrast route: INTRAVENOUS (IV); COMPARISON: CT HEAD/BRAIN WO CON 07/29/2022 1:03 AM FINDINGS: Right common carotid artery: No stenosis. No dissection or occlusion. Right internal carotid artery: No stenosis of the extracranial segment. No dissection or occlusion. Right external carotid artery: No occlusion or stenosis of the origin. Left common carotid artery: No stenosis. No dissection or occlusion. Left internal carotid artery: Soft atherosclerotic plaque results in approximately 50% stenosis of the origin of the left internal carotid artery. Left external carotid artery: No occlusion or stenosis of the origin. Right vertebral artery: No stenosis. No dissection or occlusion. Left vertebral artery: No stenosis. No dissection or occlusion. Soft tissues: Normal. No significant soft tissue swelling. Bones/joints: No acute fracture. IMPRESSION: Soft atherosclerotic plaque results in approximately 50% stenosis of the origin of the left internal carotid artery. REFERENCES: NASCET CRITERIA. The degree of stenosis in the cervical segment of the internal carotid artery is based on NASCET criteria. Normal is no stenosis. Mild is less than 50% stenosis. Moderate is 50-69% stenosis. Severe is 70% to 99% stenosis. Total occlusion is no detectable patent lumen.
--- NOTE | 2022-07-29 00:50 | CT_ITS ---
PROCEDURE INFORMATION: Exam: CT Head Without Contrast Exam date and time: 07/29/2022 1:03 AM Age: 41 years old Clinical indication: Dizziness; Additional info: Dizziness. Patient states dizziness & nausea TECHNIQUE: Imaging protocol: Computed tomography of the head without contrast. Radiation optimization: All CT scans at this facility use at least one of these dose optimization techniques: automated exposure control; mA and/or kV adjustment per patient size (includes targeted exams where dose is matched to clinical indication); or iterative reconstruction. COMPARISON: No relevant prior studies available. FINDINGS: Brain: Normal. No hemorrhage. Unremarkable white matter. No mass effect. Cerebral ventricles: No ventriculomegaly. Paranasal sinuses: Visualized sinuses are unremarkable. No fluid levels. Mastoid air cells: Visualized mastoid air cells are well aerated. Bones/joints: Unremarkable. No acute fracture. Soft tissues: Unremarkable. IMPRESSION: No acute intracranial abnormality.
[2022-07-29 01:00] VITALS: BP 125/73; PULSE 69; O2SAT 97
[2022-07-29 01:42] LABS: Procalcitonin 0.048 ng/mL (0.0-2.0)
[2022-07-29 01:43] LABS: Erythrocyte Sedimentation Rate 7 mm/hr (0-15)
[2022-07-29 02:00] VITALS: BP 153/93; PULSE 68; O2SAT 97
[2022-07-29 02:30] VITALS: BP 143/87; PULSE 68; RESP 16; TEMP 36.7; O2SAT 97
--- NOTE | 2022-07-29 02:57 | PC.NURSE ---
PT REPORTS THAT DIZZINESS HAS RESOLVED. MADE AWARE.
[2022-07-29 03:04] VITALS: BP 153/94; PULSE 92; RESP 16; TEMP 36.7; O2SAT 97
== END 2022-07-29 03:14 | disposition home or self-care (01) ==
PROVIDERS: Emergency Provider Emergency Medicine; PCP Emergency Medicine
DX: H81.10 Benign paroxysmal vertigo, unspecified ear (principal); Z20.822 Contact with and (suspected) exposure to COVID-19
CPT/HCPCS: 70450; 70496; 70498; 80053; 84145; 85025; 85651; 86140; 96374; 96375; 99284; C9803; J2405; Q9967; U0003; U0005

== ENCOUNTER 2022-07-29 16:53 | Emergency (ER) | payer OTHER, SELFPAY ==
[2022-07-29 17:00] VITALS: BP 150/91; PULSE 100; RESP 18; TEMP 36.8; O2SAT 100; BMI 30.8
[2022-07-29 17:30] VITALS: BP 132/84; PULSE 81; RESP 17; O2SAT 97
[2022-07-29 18:00] VITALS: BP 134/77; PULSE 80; RESP 18; O2SAT 97
--- NOTE | 2022-07-29 18:01 | PC.NURSE ---
verbal medication orders obtained from
[2022-07-29 18:30] VITALS: BP 127/72; PULSE 78; RESP 18; O2SAT 97
--- NOTE | 2022-07-29 18:31 | PC.NURSE ---
PT RESTING STATES HIS HEADS IS FEELING MUCH BETTER
--- NOTE | 2022-07-29 19:10 | HMH.EDGENADL ---
Discharge Plan Disposition Patient Disposition: Home, Self-Care Condition: Fair Prescriptions Prescriptions: New diazepam 2 mg tablet 2 mg PO TID PRN (Reason: vertigo) Qty: 10 0RF promethazine 25 mg tablet 25 mg PO TIDP PRN (Reason: vertigo) Qty: 10 0RF No Action meclizine [Antivert] 25 mg tablet,chewable 25 mg PO TID Qty: 10 0RF Referrals Follow up/Referrals: Provider,Referral, MD [Primary Care Provider] - See instructions Activity Restrictions/Add. Instructions Additional Instructions/Restrictions: You are being provided with a list of physicians available for follow-up of your condition. Please call a physician on this list to arrange a follow-up appointment as soon as possible. Continue meclizine and also add diazepam and Phenergan for vertigo and nausea and vomiting. Return emergency department if symptoms worsen. Additional instructions for CONTROLLED SUBSTANCES: You have been prescribed a medication that is a controlled substance. Controlled substances include pain medications known as opiates and sedative nerve medications known as benzodiazepines. Tramadol, fioricet, and gabapentin are also controlled substances. Some common opiates include: Codeine (such as Tylenol #3) Hydrocodone (Vicodin, Lortab, Lorcet, [place]) Oxycodone (Percocet, Percodan, Oxycodone, Oxy IR) Some common benzodiazepines include: Diazepam (Valium) Lorazepam (Ativan) Alprazolam (Xanax) Clonazepam (Klonopin) Oxazepam (Serax) All of these controlled substances are highly addictive and frequently abused. Misuse can and frequently does lead to addiction as well as overdose and . Medication should be stored in a locked cabinet or other secure storage unit. Do not store the medication in a motor vehicle. Short term supplies, 3 days or less, are prescribed because of the highly addictive nature of the medication. Any of the controlled substance medication NOT taken should be disposed of properly and NOT SAVED. The recommended method of disposing of unused medications is: Place the medicines in a sealable plastic bag. If the medicine is a solid, crush it or add water to dissolve it. Add something undesirable (cat litter, coffee grounds, etc.) Dispose of sealed bag in household trash Do not flush or pour unused medicines down a sink or drain. Controlled substances should not be shared, given away or sold. Because of the addictive nature and frequent abuse, these medications are sometimes stolen. These medications should be kept in a safe place where they cannot be stolen. Do not keep them in your car or purse. Lost or stolen prescriptions for controlled substances WILL NOT BE REFILLED in this emergency department, regardless of whether a police report was filed. Clinical Impressions Clinical Impression: Vertigo Discharge ED Provider: Simone Yañez Adult HPI General Chief complaint: Dizziness Stated complaint: NA, VOMITING Time Seen by Provider: 07/29/22 19:02 Mode of Arrival: Ambulatory Source of Information: Patient Limitations: No Limitations Description of Symptoms (Recalled from ER Triage Doc. by RN): pt to ed c/o dizziness, headache and vomiting. pt states he was seen in the ed last night for the came complaint. pt states he was given a nausea medication that has helped bu he is still dizzy. pt states he feels like he is in a car driving 100mph. History of Present Illness HPI narrative: Patient complains of dizziness, nausea and vomiting. Onset of symptoms yesterday, seen in the emergency department last night. Diagnosed with vertigo. Had a work-up including CT scan of the head. Discharged on meclizine. States that the meclizine has not helped the dizziness at all, but has helped his nausea and vomiting. He has a slight headache since he was released from the hospital as well. No visual disturbance. No auditory symptoms. No numbness or weakness to the extremities. No
[2022-07-29 19:29] VITALS: BP 124/70; PULSE 71; RESP 18; TEMP 36.8; O2SAT 97
== END 2022-07-29 19:33 | disposition home or self-care (01) ==
PROVIDERS: Emergency Provider Emergency Medicine
DX: R42 Dizziness and giddiness (principal); R11.2 Nausea with vomiting, unspecified; R51.9 Headache, unspecified; Z79.899 Other long term (current) drug therapy
CPT/HCPCS: 96361; 96374; 96375; 99284; J2405

== ENCOUNTER 2022-11-14 09:36 | Emergency (ER) | payer OTHER, SELFPAY ==
[2022-11-14 10:10] VITALS: BP 129/76; PULSE 91; RESP 18; TEMP 36.9; O2SAT 98; BMI 32.8
[2022-11-14 10:27] LABS: UTC Strep Screen (Rapid) Negative (Negative)
--- NOTE | 2022-11-14 10:34 | EXP.UTC ---
Discharge Plan Disposition Patient Disposition: Home, Self-Care Condition: Good Prescriptions Prescriptions: New amoxicillin 875 mg tablet 875 mg PO Q12H Qty: 20 0RF Referrals Follow up/Referrals: Sina Argueta MD [Primary Care Provider] - See instructions Activity Restrictions/Add. Instructions Additional Instructions/Restrictions: *Monitor Temp, Over the counter Motrin or Tylenol as directed/as needed Tylenol every 4 hours and Motrin every 6 hours (as long as your family doctor has told you that you can take it) for fever or pain. and straight to ER if unable to lower temp less than 101.0 after medication given *Warm salt water gargles may help to soothe the throat *Throat Lozenges? *Warm fluids like tea with honey may help to soothe the throat? *Sleep elevated *Humidifier/Vaporizer Your throat swab was sent for culture. Those results are typically sent to your primary care. Be sure to follow up in 2-3 days with your family doctor/primary care physician if no improvement so they can review those result and treat if necessary. If you don?t have a primary care doctor, I recommend you get one but in the mean time, you will have to return to a walk in clinic Follow up IMMEDIATELY for new or worsening symptoms or no Noticeable improvement over the next 48-72 hours. 911 for difficulty breathing or swallowing Clinical Impressions Clinical Impression: Otitis media Instructions Patient Instructions: Middle Ear Infection, Amoxicillin Discharge ED Provider: Naomy Acuña [facility] General Stated complaint: Sore throat Mode of Arrival: Ambulatory Source of Information: Patient Limitations: No Limitations Time Seen by Provider: 11/14/22 10:34 Description of Symptoms (Recalled from Triage Doc. by RN): PATIENT C/O SORE THROAT AND RIGHT EAR PAIN X 2 DAYS HEENT Symptoms (Recalled from RN notes): Yes Resp Symptoms (Recalled from RN notes): No Skin Symptoms (Recalled from RN notes): No MS Symptoms (Recalled from RN notes): No Functional Status (Recalled from RN notes): WNL History of Present Illness Provider Complaint: Patient states that he has been having sore throat and pain and pressure in his right ear for a couple days that has continued to get worse States that today he was still hurting so he came in to get checked Related Data Previous Rx's Medication Instructions Recorded amoxicillin 875 mg tablet 875 mg PO Q12H #20 tabs 11/14/22 Allergies Allergy/AdvReac Type Severity Reaction Status Date / Time No Known Allergies Allergy Verified 05/21/21 10:19 Worker's Comp Is this a Worker's Comp case?: No PFSH PFS Disclaimer: The information contained in this section may have been updated after the patient was seen, as this information can be updated by other users. Medical History (Updated 11/14/22 @ 10:43 by Naomy Acuña APRN) No active medical problems Social History (Updated 11/14/22 @ 10:26 by Marimar Garcia RN) Smoking Status: Never smoker alcohol intake: current current occupational status: employed Travel in the last 8 weeks: None ROS Obtained: Yes All systems reviewed & no additional complaints except as documented and Yes Systems reviewed as appropriate & no additional complaints except as documented Constitutional Constitutional: Reports system reviewed and no additional complaints, except as documented and Reports as per HPI ENT Ears, Nose, Mouth, and Throat: Reports system reviewed and no additional complaints, except as documented, Reports as per HPI, Reports otalgia and Reports sore throat Cardiovascular Cardiovascular: Reports system reviewed and no additional complaints, except as documented and Reports as per HPI Physical Exam General General appearance: alert and in no apparent distress Expanded ENT Exam TM/Canal exam: Right TM: erythema and bulging Throat exam: Present tonsillar erythema Respiratory Respiratory exam: Present no
[2022-11-14 10:47] VITALS: BP 129/76; PULSE 91; RESP 18; TEMP 36.9; O2SAT 98
== END 2022-11-14 10:48 | disposition home or self-care (01) ==
PROVIDERS: Emergency Provider Nurse Practitioner; PCP Emergency Medicine
DX: H66.90 Otitis media, unspecified, unspecified ear (principal)
CPT/HCPCS: 87880; 99212; 99213; G0463

== ENCOUNTER 2023-05-30 18:18 | Emergency (ER) | payer OTHER, SELFPAY ==
[2023-05-30 18:28] VITALS: BP 164/104; PULSE 64; RESP 18; TEMP 38.2; O2SAT 100; BMI 27.8
[2023-05-30 18:30] LABS: Microscopic, Urine URINE MICROSCOPIC (MICROSCOPIC)
[2023-05-30 18:36] LABS: Appearance,Urine CLEAR (Clear); Bilirubin,Urine Negative (Negative); Blood, Urine TRACE-I (Negative); Color,Urine YELLOW (Yellow); Glucose,Urine (UA) Negative (Negative); Ketones,Urine Negative (Negative); Leukocyte Esterase,Urine Negative (Negative); Nitrate,Urine Negative (Negative); PH,Urine 6.5 (5.0-8.5); Protein,Urine Negative (Negative)
--- NOTE | 2023-05-30 18:39 | CT_ITS ---
PROCEDURE INFORMATION: Exam: CT Abdomen And Pelvis With Contrast Exam date and time: 05/30/2023 7:21 PM Age: 42 years old Clinical indication: Fever; Additional info: Fever, diffuse abd pain TECHNIQUE: Imaging protocol: Computed tomography of the abdomen and pelvis with contrast. Radiation optimization: All CT scans at this facility use at least one of these dose optimization techniques: automated exposure control; mA and/or kV adjustment per patient size (includes targeted exams where dose is matched to clinical indication); or iterative reconstruction. Contrast material: ISOVUE; Contrast volume: 75 ml; Contrast route: IV; REPORTING DATA: Count of CT and Cardiac NM exams in prior 12 months: This patient has received 3 known CTs and 0 known cardiac nuclear medicine studies in the 12 months prior to the current study. COMPARISON: CR CXR CHEST(2 VIEWS-NOT PORTABLE) 08/01/2017 7:42 PM FINDINGS: Lungs: Bibasilar atelectasis Liver: Normal. No mass. Gallbladder and bile ducts: Contracted gallbladder Pancreas: Normal. No ductal dilation. Spleen: Normal. No splenomegaly. Adrenal glands: Normal. No mass. Kidneys and ureters: There is no evidence of renal or ureteral calcifications.. Stomach and bowel: Unremarkable. No obstruction. No mucosal thickening. Appendix: Normal appendix. Intraperitoneal space: Unremarkable. No free air. No significant fluid collection. Vasculature: Unremarkable. No abdominal aortic aneurysm. Lymph nodes: Unremarkable. No enlarged lymph nodes. Urinary bladder: Unremarkable as visualized. Reproductive: Unremarkable as visualized. Bones/joints: Unremarkable. No acute fracture. Soft tissues: Unremarkable. IMPRESSION: 1. Normal appendix. 2. There is no evidence of renal or ureteral calcifications..
[2023-05-30 18:58] LABS: Basophils # 0.1 K/mm3 (0-0.2); Basophils % 0.5 % (0.1-2.0); Eosinophils # 0.3 K/mm3 (0.0-0.4); Eosinophils % 2.6 % (0.1-12.0); Hematocrit 47.2 % (42.0-52.0); Hemoglobin 15.5 g/dL (14.1-18.0); Lymphocytes # 1.2 K/mm3 (0.7-4.5); Lymphocytes % 11.1 % (10-50); Mean Corpuscular HGB Conc 32.9 g/dL (31.8-35.4); Mean Corpuscular Hemoglobin 28.3 pg (27.0-31.2); Mean Platelet Volume 9.2 fl (7.4-10.4); Monocytes # 0.6 K/mm3 (0.1-1.0); Monocytes % 5.5 % (1.7-9.3); Neutrophils # 8.6 K/mm3 (1.8-7.8); Neutrophils % 80.4 % (37.0-80.0); Platelet Count 184 K/mm3 (142-424); Red Blood Count 5.48 M/mm3 (4.60-6.20); Red Cell Distribution Width 13.4 % (11.5-17.5); White Blood Count 10.7 K/mm3 (4.8-10.8)
[2023-05-30 19:00] LABS: Chloride 100 mmol/L (98-107)
[2023-05-30 19:01] LABS: Potassium 4.1 mmoL/L (3.5-5.1); Sodium 138 mmol/L (136-145)
[2023-05-30 19:03] LABS: Alanine Aminotransferase 71 U/L (12-78); Aspartate Amino Transferase 64 U/L (17-59); Blood Urea Nitrogen 15 mg/dl (9-20); Creatinine Clearance Estimated 141 mL/min (50-200); Estimated Glomerular Filt Rate 93 ml/min (>60); GFR (African American) 112 ML/MIN (>60)
[2023-05-30 19:04] LABS: Albumin Level 4.9 g/dl (3.5-5.0); Albumin/Globulin Ratio 1.2 (1.1-1.8); Alkaline Phosphatase 106 U/L (38-126); Anion Gap 16.1 mEq/L (5-15); Bilirubin,Total 0.8 mg/dl (0.2-1.3); Calcium 9.8 mg/dl (8.4-10.2); Carbon Dioxide 26 mmol/L (22.0-30.0); Globulin 4.1 g/dL (1.3-3.2); Glucose 108 mg/dl (74-100); Lipase 79 U/L (23-300)
--- NOTE | 2023-05-30 19:47 | HMH.EDGENADL ---
Discharge Plan Disposition Patient Disposition: Home, Self-Care Condition: Good Prescriptions Prescriptions: No Action amoxicillin 875 mg tablet 875 mg PO Q12H Qty: 20 0RF Referrals Follow up/Referrals: Sina Argueta MD [Primary Care Provider] - See instructions Activity Restrictions/Add. Instructions Additional Instructions/Restrictions: Please follow-up with your primary care provider. Please return to the emergency department if you develop any new or worsening symptoms or become concerned for your health. Clinical Impressions Clinical Impression: Fever, Abdominal pain Instructions Patient Instructions: DI for Acute Abdominal Pain Discharge ED Provider: Damon Bassett General Adult HPI General Chief complaint: Abdominal Pain Stated complaint: fever,vomiting, abd pain Time Seen by Provider: 05/30/23 18:33 Mode of Arrival: Ambulatory Source of Information: Patient Limitations: No Limitations Description of Symptoms (Recalled from ER Triage Doc. by RN): Presents via POV d/t constipation x 3 days, diffuse abd pain, nausea, weakness, and fever (max temp 103.4). OTC Tylenol @ 11:00am, Metamucil without improvement. Denies PMHx. History of Present Illness HPI narrative: 42-year-old male, reportedly previously healthy, presents with 3 days of abdominal pain and 1 day of fever. Temperature as high as 103 at home, currently 100.7 here. Patient reports his abdominal pain is diffuse, associated with constipation. Reports that he normally has a bowel movement 3 times a day but has not had any significant stool output for the last 3 days. Denies any prior abdominal surgeries. Patient also reports mild cough and sore throat that have developed over the last couple of days. Patient reports he is still been able to eat and drink at home. Related Data Previous Rx's Medication Instructions Recorded amoxicillin 875 mg tablet 875 mg PO Q12H #20 tabs 11/14/22 Allergies Allergy/AdvReac Type Severity Reaction Status Date / Time No Known Allergies Allergy Verified 05/21/21 10:19 [facility] Disclaimer: The information contained in this section may have been updated after the patient was seen, as this information can be updated by other users. Medical History (Updated 05/30/23 @ 21:06 by Damon Bassett MD) No active medical problems Social History (Updated 11/14/22 @ 10:26 by Marimar Garcia RN) Smoking Status: Never smoker alcohol intake: current current occupational status: employed Travel in the last 8 weeks: None ROS Obtained: Yes All systems reviewed & no additional complaints except as documented Physical Exam General General appearance: alert and in no apparent distress Head Head exam: atraumatic and normocephalic Eye Eye exam: Present normal appearance, PERRL and EOMI ENT ENT exam: Present normal oropharynx and normal external ear exam Neck Neck exam: Present normal inspection and full ROM Chest Chest inspection: Present normal inspection and symmetric chest wall rise; Absent tenderness Respiratory Respiratory exam: Present normal lung sounds bilaterally; Absent respiratory distress Cardiovascular Cardiovascular exam: Present regular rate and normal rhythm Abdominal Exam Abdominal exam: Present soft, distention and tenderness (Mild, generalized); Absent guarding or rebound Extremities Exam Extremities exam: Present normal inspection; Absent edema or joint swelling Back Exam Back exam: Present normal inspection; Absent tenderness Neurological Exam Neurological exam: Present alert and oriented X3; Absent motor sensory deficit Psychiatric Psychiatric exam: Present normal affect and normal mood Skin Skin exam: Present warm, dry and normal color Lymphatic Lymphatic Findings: no adenopathy Medical Decision Making Medical Records Medical records reviewed: Yes I reviewed the patient's medical records. Isidro Inquiry Pt receiving controlled substance: No Vital Signs:
[2023-05-30 19:50] LABS: Squamous Epithelial Cell,Urine Occasional #/hpf (0-5)
--- NOTE | 2023-05-30 21:04 | PC.NURSE ---
Dr. Bassett at
[2023-05-30 21:15] VITALS: BP 117/66; PULSE 81; RESP 19; TEMP 36.9; O2SAT 99
== END 2023-05-30 21:15 | disposition home or self-care (01) ==
PROVIDERS: Emergency Provider Emergency Medicine; PCP Emergency Medicine
DX: R10.9 Unspecified abdominal pain (principal); R50.9 Fever, unspecified; R11.0 Nausea; R53.1 Weakness
CPT/HCPCS: 74177; 80053; 81001; 83690; 85025; 99285; Q9967

== ENCOUNTER 2025-10-03 12:14 | Emergency (ER) | payer OTHER, SELFPAY ==
[2025-10-03 12:18] VITALS: BP 167/103; PULSE 82; RESP 17; TEMP 36.6; O2SAT 99; BMI 34.7
--- NOTE | 2025-10-03 12:22 | CT_ITS ---
PROCEDURE INFORMATION: Exam: CT Chest Without Contrast; Diagnostic Exam date and time: 10/03/2025 12:39 PM Age: 44 years old Clinical indication: Injury or trauma; Fall; Other: Pain; Additional info: Fall, L lateral thoracic cage pain TECHNIQUE: Imaging protocol: Diagnostic computed tomography of the chest without contrast. Radiation optimization: All CT scans at this facility use at least one of these dose optimization techniques: automated exposure control; mA and/or kV adjustment per patient size (includes targeted exams where dose is matched to clinical indication); or iterative reconstruction. COMPARISON: No relevant prior studies available. FINDINGS: Lungs: Calcified right lung granuloma. The lungs are otherwise unremarkable. Pleural spaces: Pleural spaces are unremarkable. No pneumothorax. No pleural effusion. Heart: The heart is unremarkable. No cardiomegaly. No pericardial effusion. Coronary arteries: There are no atherosclerotic calcifications of the coronary arteries. Esophagus: The esophagus is unremarkable. Lymph nodes: No enlarged lymph nodes. Vasculature: The aorta is unremarkable. No aneurysm. Pulmonary arteries are unremarkable. Bones/joints: The visible skeletal structures are unremarkable. There is no visible fracture. Soft tissues: The remaining soft tissue is unremarkable. IMPRESSION: 1. No visible rib fracture. 2. No acute traumatic injury of the chest. 3. No acute cardiopulmonary process.
--- NOTE | 2025-10-03 12:23 | HMH.EDGENADL ---
Discharge Plan Disposition Patient Disposition: Home, Self-Care Prescriptions Prescriptions: New ibuprofen 800 mg tablet 800 mg PO Q8H PRN (Reason: pain) Qty: 15 0RF methocarbamol 1,000 mg tablet 1,000 mg PO Q8H PRN (Reason: muscle pain) Qty: 15 0RF Referrals Follow up/Referrals: Provider,Referral, [Primary Care Provider, Medical] - See instructions Activity Restrictions/Add. Instructions Additional Instructions/Restrictions: At this time it was felt you are safe to be discharged home. If new or worsening symptoms please do not hesitate to return the emergency department. Please take your medications as prescribed. Clinical Impressions Clinical Impression: Fall, Rib sprain Print Language Print Language: Syriac Discharge ED Provider: Marino Mcneal General Adult HPI General Chief complaint: PAIN Stated complaint: AO 09/30, fell, inj left side ribs Time Seen by Provider: 10/03/25 12:19 History of Present Illness HPI narrative: Patient is a 44-year-old male with no pertinent past medical history who presents to the emergency department for evaluation of traumatic injury sustained in a fall. Patient was a few feet off the ground when he suffered a mechanical fall striking a 2 x 4 on his left lateral thoracic cage a few days ago. Since then he has had pain with inspiration that is causing him to become concerned and presented here for continued evaluation. No abdominal pain, no left flank pain, no extremity pain, did not strike his head or lose consciousness, no anticoagulation or bleeding diathesis. Please note that above description of symptoms, in this electronic medical record under categorization of recalled from ER triage doctor by RN are reflective of an initial nursing assessment, however, is not reflective of my full history and physical exam that was personally taken and clarified. Consequentially, this preceding description of symptoms, which may include the patient's categorized chief complaint in the EMR, do not reflect my personal clinical impression, and the ultimate description of history of present illness and patient stated complaints should be deferred to this section of the note. Unless stated otherwise or congruent with this section of the note, additional signs, symptoms, or incongruence should be interpreted as inaccurate with my clinical impression. Related Data Previous Rx's ?Medication ?Instructions ?Recorded ibuprofen 800 mg tablet 800 mg PO Q8H PRN pain #15 tabs 10/03/25 methocarbamol 1,000 mg tablet 1,000 mg PO Q8H PRN muscle pain 10/03/25 #15 tabs Allergies Allergy/AdvReac Type Severity Reaction Status Date / Time No Known Allergies Allergy Verified 10/03/25 12:[facility] Disclaimer: The information contained in this section may have been updated after the patient was seen, as this information can be updated by other users. Medical History (Updated 10/03/25 @ 12:59 by Marino Mcneal MD) No active medical problems Social History (Updated 11/14/22 @ 10:26 by Marimar Garcia RN) Smoking Status: Never smoker alcohol intake: current alcohol intake frequency: holidays/special occasions only current occupational status: employed Travel in the last 8 weeks?: None Have you lived/traveled outside US in past 30 days?: No Contact w/someone who lives/traveled outside US past 30 days?: No Exposure to someone with infectious disease in past 14 days?: No Do you have a fever (greater than 100.4 F or 38 C)?: No Have you tested positive for COVID-19?: No Exposed to someone with COVID-19 in past 14 days?: No Do you have a sore throat?: No Do you have a cough?: No Do you have any weakness?: No Do you have any diarrhea?: No Are you experiencing any unusual bleeding?: No Do you have any muscle aches/pain?: No Do you have any abdominal pain?: No Are you experiencing loss of taste or smell?: No Other Medical History Have you received the Flu Vaccine for this season: No Have you received the Pneumonia Vaccine: No ROS Obtained: Yes Systems reviewed as appropriate & no additional complaints except as documented Physical Exam General General appearance: alert and in no apparent distress Head Head exam: atraumatic and normocephalic Eye Eye exam: Present PERRL and EOMI ENT ENT exam: Present mucous membranes moist Neck Neck exam: Present normal inspection Chest Chest inspection: Present normal inspection and symmetric chest wall rise Respiratory Respiratory exam: Present normal lung sounds bilaterally; Absent respiratory distress Cardiovascular Cardiovascular exam: Present regular rate and normal rhythm Abdominal Exam Abdominal exam: Present soft; Absent tenderness, guarding or rebound Extremities Exam Extremities exam: Present normal inspection Neurological Exam Neurological exam: Present alert Psychiatric Psychiatric exam: Present normal affect Skin Skin exam: Present warm and dry Medical Decision Making Medical Records Screening: Per USPSTF and CDC recommendations, given the prevalence of disease in our region, it is our hospital?s policy to screen for HIV and viral Hepatitis for all patients aged 18 and over and those with ongoing risk factors. Isidro Inquiry Pt receiving controlled substance: No Vital Signs: 10/03/25 12:18 10/03/25 12:32 Temperature 97.9 F Temperature Source Oral Pulse Rate 82 Pulse Rate [Left] 82 Respiratory Rate 17 19 Blood Pressure [Right Arm] 167/103 H Blood Pressure Mean [Right Arm] 124 Blood Pressure Source [Right Arm] Automatic Cuff Blood Pressure Position [Right Arm] Sitting 02 Sat by Pulse Oximetry 99 97 Oxygen Delivery Method Room Air Room Air Orders (Tests/Meds): ED MEDICATIONS Discontinued Medications Generic Name Dose Route Start Last Admin Trade Name Freq PRN Reason Stop Dose Admin Acetaminophen 1,000 mg 10/03/25 12:22 10/03/25 12:34 Acetaminophen 500mg Tab PO 10/03/25 12:23 1,000 mg ONCE ONE Administration Methocarbamol 500 mg 10/03/25 12:23 10/03/25 12:34 Methocarbamol 500mg Tablet PO 10/03/25 12:24 500 mg ONCE ONE Administration ORDERS Category Date Time Status CT chest wo con Stat Cat Scan 10/03/25 12:22 Completed HIV Combo Stat Lab 10/03/25 12:26 Ordered Hepatitis C Ab Qual. W/ RFX Stat Lab 10/03/25 12:26 Ordered Medical Decision Narrative: In summary patient is a 44-year-old male with past medical history described above who presents to the emergency department for evaluation of traumatic injury sustained in a fall. Patient is hemodynamically stable nontoxic-appearing upon arrival, afebrile. Based on history and physical exam differential diagnosis includes rib fracture, pulmonary contusion, musculoskeletal strain, among others. Limited workup will be conducted with noncontrasted CT scan of the chest. Initial interventions include Tylenol and Robaxin. CT imaging of the abdomen and head was considered however given mechanism site and no pain will be deferred. Noncontrasted CT scan of the chest informally visualized by me, no high or mid thoracic cage rib fracture where patient is tender. Incomplete imaging of the thoracic cage over top of the left lower quadrant however patient is not tender in this region and I have no concerns. Formal read shows no acute pathology. Given this patient is appropriate for outpatient management at this time will be discharged with a course of ibuprofen 800s and methocarbamol. Proposition Player disclaimer Much of this encounter note is an electronic hospital medicine director spoken language to printed text. Electronic hospital medicine director of the spoken language may permit errors. Although I have reviewed the note, some errors may still exist. Critical Care Critical Care Time Critical Care Time: No
--- OUTSIDE RECORDS SUMMARY | 2025-10-03 12:29 | XMS_ITS | Clinical Summary ---
Author Organization Healthcare Address [address] [place] [address] Care Team Providers Care Director Of Institutional Research Name Role Phone Unavailable Primary Care Provider Unavailabl e Family History Medical History Relation Name Comments Hypertension Father Diabetes type II Mother Relation Name Status Comments Father Mother Social History Tobacco Use Types Packs/Day Years Used Date Smoking Tobacco: Never Alcohol Use Standard Drinks/Week Comments Not Currently 0 (1 standard drink = 0.6 oz pure alcohol) Alcoholic Drinks/day: Former consumption of alcohol Sex and Gender Information Value Date Recorded Sex Assigned at Not on file Legal Sex Male 6:30 PM EDT Gender Identity Not on file Sexual Orientation Not on file Last Filed Vital Signs Vital Sign Reading Time Taken Comments Blood Pressure - - Pulse - - Temperature - - Respiratory Rate - - Oxygen Saturation - - Inhaled Oxygen Concentration - - Weight 76.8 kg (169 lb 4 oz) 05/16/2014 10:34 AM EDT Height 180.3 cm (5' 11 ) 05/16/2014 10:34 AM EDT Body Mass Index 23.61 05/16/2014 10:34 AM EDT Plan of Treatment Not on file
[2025-10-03 12:32] VITALS: PULSE 82; RESP 19; O2SAT 97
[2025-10-03] MEDS: METHOCARBAMOL 500MG TABLET 500 MG PO (12:34)
[2025-10-03] MEDS: ACETAMINOPHEN 500MG TAB 1000 MG PO (12:34)
[2025-10-03 13:04] VITALS: BP 151/102; PULSE 85; RESP 18; TEMP 36.8; O2SAT 97
== END 2025-10-03 13:08 | disposition home or self-care (01) ==
PROVIDERS: Emergency Provider Emergency Medicine
DX: R07.1 Chest pain on breathing (principal); S23.41XA Sprain of ribs, initial encounter; W17.89XA Other fall from one level to another, initial encounter
CPT/HCPCS: 71250; 99283; 99284